=== PATIENT | female | born 1965 | race Caucasian/White ===

== ENCOUNTER 2019-11-30 11:48 | Emergency (ER) | payer BC, MEDICARE ==
[~2019-11-30] VITALS: Ht 157.5 cm; Wt 90.0 kg
[2019-11-30] MEDS ORDERED: oxyCODONE/APAP 10/325mg tablet PO ONE (12:30)
[2019-11-30] MEDS ORDERED: ondansetron/PF 4mg/2ml inj IV ONE (13:35)
[2019-11-30] MEDS ORDERED: LORazepam 2 mg/ml vial IV ONE (13:35)
[2019-11-30] MEDS ORDERED: ketamine 10mg/ml 20ml inj IV ONE (13:35)
[2019-11-30] MEDS ORDERED: normal saline 1000ML IV soln IVB ONE (13:35)
[2019-11-30] MEDS ORDERED: ketamine 50 mg/ml 10ml vial IV ONE (13:45)
--- NOTE | 2019-11-30 14:56 | NUR ---
pt recovering from sedation, pt is alert, oriented x3, 02 nasal cannula has been removed, Brian CUNNINGHAM at bedside to reevaluate pt, pt is eating ice chips, sriram well, no n/v
--- NOTE | 2019-11-30 15:12 | NUR ---
report given to Chanell RHOADES, pt continues to rest quietly, sleeping, easily arouseable,
--- NOTE | 2019-11-30 17:21 | NUR ---
pt is calling family for ride home
[2019-11-30] MEDS ORDERED: OXYC-145 PO (17:52)
[2019-11-30 17:56] VITALS: BP 144/95
== END 2019-11-30 18:31 | disposition home or self-care (01) ==
LOC: ER 11:49
DX: S82.852A Displaced trimalleolar fracture of left lower leg, initial encounter for closed fracture (principal); G62.9 Polyneuropathy, unspecified; J45.909 Unspecified asthma, uncomplicated; G89.29 Other chronic pain; Z79.899 Other long term (current) drug therapy; W00.0XXA Fall on same level due to ice and snow, initial encounter; Y93.89 Activity, other specified; Y92.89 Other specified places as the place of occurrence of the external cause; Y99.8 Other external cause status
CPT/HCPCS: 27818; 73600; 73610; 96374; 96375; 99152; 99285; J2060; J2405; J7030; 27788; 99284